=== PATIENT | female | born 1980 | race Caucasian/White ===

== ENCOUNTER 2016-03-31 07:05 | Day surgery (SDC) ==
[2016-03-01 17:55] VITALS: BMI 32.9
[2016-03-31] MEDS ORDERED: LIDOCAINE 1% 20 ML MDV ID ONE (07:20)
[2016-03-31 07:38] VITALS: TEMP 98
[2016-03-31] MEDS ORDERED: VERSED ONE (08:45)
[2016-03-31] MEDS ORDERED: DIPRIVAN 20 ML VIAL IVP ONE (08:45)
[2016-03-31] MEDS ORDERED: SUBLIMAZE ONE (08:45)
[2016-03-31 10:37] VITALS: BP 108/74
--- NOTE | 2016-03-31 14:28 | OP ---
INDICATIONS FOR PROCEDURE: 35-year-old female presents for endoscopy nd colonoscopy. She was having some right upper quadrant discomfort but that has improved. She still has heartburn and regurgitation, worse today after taking a prep. She was also having bright red blood per rectum. She has a history of colon polyps five years ago in [place], [place], unknown pathology results. She is scheduled for colonoscopy. MEDICATIONS: SEE ANESTHESIA NOTES. PROCEDURE: 1. ENDOSCOPY, ESOPHAGEAL BIOPSY, DAVID BIOPSY. 2. COLONOSCOPY. REPORT: The risks, benefits, alternatives and limitations were discussed in detail with the patient. Informed consent was obtained. After adequate sedation was achieved, the video endoscope was introduced in the posterior pharynx and esophagus under direct vision and easily advanced down to the second portion of the duodenum. I then slowly withdrew. The duodenal mucosa appeared unremarkable as did the duodenal bulb. The antrum and body relatively unremarkable. The scope was retroflexed to look at the cardia and fundus which was unremarkable. The scope was anteflexed and two biopsies from the antral wall and from the body obtained for H. Pylori testing. The scope was withdrawn back through the esophagus. There were two small erosions in the distal esophagus I biopsied this for histological review. The GE junction was at the top of the gastric folds at the diaphragmatic hiatus. The patient tolerated the procedure well with stable vital signs and pulse oximetry throughout. The patient's bed was turned. A digital rectal exam revealed good tone, no mass. The colonoscope was introduced into the rectum, advanced under direct visual guidance to the cecum. The cecum was identified by the appendiceal orifice and IC valve. I intubated the terminal ileum, which was unremarkable. I then slowly withdrew the scope in a circumferential manner examining the mucosa quite carefully. I looked on the proximal and distal side of folds and flexures as best as possible. I retroflexed the scope in the right colon and left colon to increase visualization. The colonic mucosa was unremarkable its entire length other than one diverticulum noted in the sigmoid area. No other abnormalities noted including on retroflex view of the anal canal. The prep was excellent, withdrawal time 6 minutes and 0 seconds. The patient tolerated the procedure well with stable vital signs and pulse oximetry throughout. IMPRESSION: 1. 1+ ESOPHAGITIS 2. SINGLE SIGMOID DIVERTICULUM RECOMMENDATIONS: 1. Strict reflux precautions. 2. Await pathology results. 3. Continue the same medications. 4. Repeat colonoscopy examination again at age 51, sooner if signs or symptoms would indicate otherwise. 5. Will see her back in the office as needed. CC: DR. HUMBERTO HOLLIS
== END 2016-03-31 10:45 | disposition home or self-care (01) ==
LOC: SURG 07:05
PROVIDERS: ATTEND Internal Medicine Gastroenterology
DX: Z86.010 Personal history of colon polyps (principal); R10.11 Right upper quadrant pain; K62.5 Hemorrhage of anus and rectum; D13.0 Benign neoplasm of esophagus; K57.30 Diverticulosis of large intestine without perforation or abscess without bleeding; K21.0 Gastro-esophageal reflux disease with esophagitis
CPT/HCPCS: 87339

== ENCOUNTER 2016-05-17 11:23 | Emergency (ER) ==
[2016-05-17 11:38] VITALS: BP 112/71; TEMP 98.4; BMI 32.8
[2016-05-17] MEDS ORDERED: DECADRON 4 MG/ML SDV IM STA (12:02)
--- NOTE | 2016-05-17 12:05 | ED.PDOC ---
General ED Provider: Dr. MIKAYLA SINGH Chief Complaint: Cough Stated Complaint: cough Time Seen by Physician: 11:33 Mode of Arrival: Walk-In Information Source: Patient Exam Limitations: No limitations Primary Care Provider: ANDREA JEAN Nursing and Triage Documentation Reviewed and Agree: Yes Respiratory Complaint Exam - Respiratory Complaint/Exam Onset/Duration: 1 day Symptoms Are: Still present Timing: Intermittent Initial Severity: Moderate Current Severity: Mild Location: Throat, Chest Character: Reports: Non-productive cough Aggravating: Reports: None Alleviating: Reports: None Associated Signs and Symptoms: Reports: URI, Nasal congestion, Sore throat. Denies: Rapid breathing, Dyspnea, Fever, Chills, Chest pain, Pleuritic chest pain, Wheezing, Hemoptysis, Dizziness, Calf pain, Calf swelling, Edema, Hoarseness, Sinus discomfort, Vomiting, Weight loss, Decreased oral intake, Increased thirst, Increased appetite, Increased urination Related History: Reports: Similar episode History of Healthcare-Acquired Pneumonia: No Related Surgical History: Reports: None Pulmonary Embolism Risk Factors: None Cardiac Risk Factors: Reports: None Pseudomonas Risk Factors: Reports: None Tuberculosis Risk Factors: Reports: None Status Asthmaticus Risk Factors: Reports: None Home Oxygen Use: No Recent Stress Test: No Recent Echo/LV Function: No Current Antibiotic Use: No Current Asthma Medication Use: No Respiratory Distress: None Inadequate Respiratory Effort: No Dysphagia Present: No Stridor Present: No JVD Present: No Retractions: Not Present Diminished Breath Sounds: No Sinus Tenderness: None Grunting Respirations: No Kussmaul Respirations: No Differential Diagnoses: Pneumonia, Bronchitis Review of Systems - Review Of Systems Constitutional: Reports: Malaise Eyes: Reports: No symptoms Ears, Nose, Mouth, Throat: Reports: Throat pain Respiratory: Reports: Cough, Wheezing Cardiac: Reports: No symptoms GI: Reports: No symptoms : Reports: No symptoms Musculoskeletal: Reports: No symptoms Skin: Reports: No symptoms Neurological: Reports: No symptoms Endocrine: Reports: No symptoms Hematologic/Lymphatic: Reports: No symptoms All Other Systems: Reviewed and Negative Past Medical History - Past Medical History Previously Healthy: Yes Endocrine: Reports: None Cardiovascular: Reports: None Respiratory: Reports: None Hematological: Reports: None Gastrointestinal: Reports: None Genitourinary: Reports: UTI (recurrent) Neuro/Psych: Reports: Anxiety, Depression Musculoskeletal: Reports: None Cancer: Reports: None Last Menstrual Period: none - Surgical History General Surgical History: Reports: Hysterectomy (partial ) - Family History Family History: Reports: Unknown - Social History Smoking Status: Former smoker, Vaping Hx Substance Use: No Alcohol Screening: None Physical Exam - Physical Exam Appearance: Well-appearing, No pain distress, Well-nourished Eyes: HAYDEE, EOMI, Conjunctiva clear ENT: Ears normal, Nose normal, Oropharynx normal Respiratory: Wheezes Cardiovascular: RRR, Pulses normal, No rub, No murmur GI/: Soft, Nontender, No masses, Bowel sounds normal, No Organomegaly Musculoskeletal: Normal strength, ROM intact, No edema, No calf tenderness Skin: Warm, Dry, Normal color Neurological: Sensation intact, Motor intact, Reflexes intact, Cranial nerves intact, Alert, Oriented Psychiatric: Affect appropriate, Mood appropriate Critical Care Note - Critical Care Note Total Time (mins): 0 Course - Course Orders, Labs, Meds: Orders Category Date Time Status Dexamethasone 4 mg/ml Inj [Decadron 4 mg/ml Sdv] MEDS 05/17/16 12:02 Stat 4 mg IM ONCE STA Medications Generic Name Dose Route Start Last Admin Trade Name Freq PRN Reason Stop Dose Admin Dexamethasone Sodium Phosphate 4 mg 05/17/16 12:02 Decadron 4 Mg/Ml Sdv IM 05/17/16 12:03 ONCE STA Vital Signs: Temp Pulse Resp BP Pulse Ox 05/17/16 11:33 98.4 F 91 H 18 112/71 97 Departure - Departure Time of Disposition: 12:04 Disposition: HOME SELF-CARE Discharge Problem: Cough, Bronchitis Instructions: Acute Bronchitis (ED), Wheezing (ED), How Your Lungs Work (ED), Bronchospasm (ED) Condition: Good Pt referred to PMD for follow-up: No Additional Instructions: Please call your Family Physician as soon as possible to schedule a follow-up appointment. Allergies/Adverse Reactions: Allergies ibuprofen [From Motrin] Adverse Reaction (Verified 05/17/16 11:38) Home Medications: Ambulatory Orders Omeprazole [Prilosec] 20 mg PO QDAC 03/01/16 Disposition Discussed With: Patient
== END 2016-05-17 12:39 | disposition home or self-care (01) ==
LOC: ED 11:23
DX: J20.9 Acute bronchitis, unspecified (principal)
CPT/HCPCS: 96372; 99282

== ENCOUNTER 2016-06-17 10:57 | Emergency (ER) ==
[2016-06-17 11:03] VITALS: BP 118/76; TEMP 99.5; BMI 32.5
--- NOTE | 2016-06-17 11:30 | ED.PDOC ---
General ED Provider: Dr. JONNATHAN TORRES JR Chief Complaint: Sore Throat Stated Complaint: had sore throat--feels left tonsil is swollen--then developed lower back pain--back pain has worsened--had headache since last night-[End] headache back pain are chronic patient does accept toradol injection but note allergy to motrin 99.5 88 20 98% 118/76 09/05 Time Seen by Physician: 11:28 Mode of Arrival: Walk-In Information Source: Patient Exam Limitations: No limitations [facility] Nursing and Triage Documentation Reviewed and Agree: No Review of Systems - Review Of Systems Constitutional: Reports: Malaise Eyes: Reports: No symptoms Ears, Nose, Mouth, Throat: Reports: Throat pain Respiratory: Reports: No symptoms Cardiac: Reports: No symptoms GI: Reports: No symptoms : Reports: No symptoms Musculoskeletal: Reports: Back pain Skin: Reports: No symptoms Neurological: Reports: No symptoms Endocrine: Reports: No symptoms Hematologic/Lymphatic: Reports: No symptoms All Other Systems: Other Past Medical History - Past Medical History Previously Healthy: Yes Endocrine: Reports: None Cardiovascular: Reports: None Respiratory: Reports: None Hematological: Reports: None Gastrointestinal: Reports: None Genitourinary: Reports: UTI (recurrent) Neuro/Psych: Reports: Anxiety, Depression Musculoskeletal: Reports: None Cancer: Reports: None Last Menstrual Period: hysterectomy - Surgical History General Surgical History: Reports: Hysterectomy (partial ) - Family History Family History: Reports: Unknown - Social History Smoking Status: Former smoker, Vaping Hx Substance Use: No Alcohol Screening: None Physical Exam - Physical Exam Appearance: Well-appearing, Obese Pain Distress: Moderate Eyes: HAYDEE, EOMI, Conjunctiva clear ENT: Ears normal, Nose normal, Oropharynx normal Neck: Supple Respiratory: Airway patent, Breath sounds clear, Breath sounds equal, Respirations nonlabored Cardiovascular: RRR, Pulses normal, No rub, No murmur GI/: Soft, Nontender, No masses, Bowel sounds normal, No Organomegaly Musculoskeletal: Normal strength, ROM intact, No edema, No calf tenderness ( tenderness paraspinal muscles at L3L4 level) Skin: Warm, Dry, Normal color Neurological: Sensation intact, Motor intact, Reflexes intact, Cranial nerves intact, Alert, Oriented Critical Care Note - Critical Care Note Total Time (mins): 0 Course - Course Orders, Labs, Meds: Orders Category Date Time Status RAPID FLU A/B Stat LAB 06/17/16 11:10 Received STREP SCREEN Stat LAB 06/17/16 11:10 Received Vital Signs: Temp Pulse Resp BP Pulse Ox 06/17/16 10:57 99.5 F 88 20 118/76 98 Departure - Departure Time of Disposition: 12:03 Disposition: HOME SELF-CARE Discharge Problem: Sore throat symptom, RTI (respiratory tract infection), Chronic back pain greater than 3 months duration Instructions: Upper Respiratory Infection (ED), Pharyngitis (ED), Chronic Back Pain (ED), Lower Back Exercises (ED) Condition: Good Pt referred to PMD for follow-up: Yes Additional Instructions: Naprosyn and Tylenol for back pain, and throat pain may use flexeril for spasms rest for two days - viral syndrome should resolve quickly return if fever over 101.0 use ice packs for acute worsening repeat testing of strep will be done- begin antibiotic only if positive Prescriptions: Naproxen [Naprosyn] 500 mg PO Q12HR PRN #30 tablet PRN Reason: PAIN Cyclobenzaprine HCl [Flexeril] 5 mg PO TID PRN #15 tablet PRN Reason: Spasms Allergies/Adverse Reactions: Allergies ibuprofen [From Motrin] Adverse Reaction (Verified 06/17/16 11:05) Home Medications: Ambulatory Orders Omeprazole [Prilosec] 20 mg PO QDAC 03/01/16 Cyclobenzaprine HCl [Flexeril] 5 mg PO TID PRN #15 tablet 06/17/16 L.acidoph,Paracasei, B.lactis [Probiotic] 1 each PO DAILY 06/17/16 Naproxen [Naprosyn] 500 mg PO Q12HR PRN #30 tablet 06/17/16
[2016-06-17] MEDS ORDERED: TORADOL IM STA (11:32)
[2016-06-17 11:38] LABS: FLU INTERNAL QC INTERNAL QC VALID; RAPID FLU A NEGATIVE (NEGATIVE); RAPID FLU B NEGATIVE (NEGATIVE)
== END 2016-06-17 12:55 | disposition home or self-care (01) ==
LOC: ED 10:57
DX: J02.9 Acute pharyngitis, unspecified (principal); J06.9 Acute upper respiratory infection, unspecified; M54.5 Low back pain; G89.29 Other chronic pain
CPT/HCPCS: 87651; 87804; 87880; 96372; 99283

== ENCOUNTER 2016-07-29 10:28 | Outpatient (CLI) ==
--- NOTE | 2016-07-29 10:55 | DI ---
EXAM: Lumbar spine radiographs. HISTORY: Low back pain. COMPARISON: 10/16/2010. TECHNIQUE: 5 views of the lumbar spine. FINDINGS: The normal curvature and alignment are maintained. Vertebral body heights are normal. T here is mild loss of disc height at L2-3 and L3-4 with associated endplate osteophyte formation. No fracture or subluxation identified. Sacral arcuate lines are intact. Soft tissues are unremarkabl e. IMPRESSION: Mild degenerative disc disease at L2-3 and L3-4.
[2016-07-29 11:03] LABS: BASOPHILS % (AUTO) 0.5 % (0.0-3.0); EOSINOPHILS # (AUTO) 0.4 K/ul (0.0-0.7); EOSINOPHILS % (AUTO) 5.7 % (0.0-7.0); HEMATOCRIT 39.5 % (37.0-47.0); HEMOGLOBIN 13.1 g/dl (12.0-16.0); IMMATURE GRANULOCYTE % (AUTO) 0.2 % (0.0-5.0); LYMPHOCYTES # (AUTO) 2.2 K/uL (0.60-3.4); LYMPHOCYTES % (AUTO) 32.3 (10.0-50.0); MEAN CORPUSCULAR HEMOGLOBIN 30.8 pg (27.0-31.0); MEAN CORPUSCULAR HGB CONC 33.2 (31.8-35.4); MEAN CORPUSCULAR VOLUME 92.7 fl (81.0-99.0); MONOCYTES # (AUTO) 0.3 K/uL (0.4-2.0); MONOCYTES % (AUTO) 4.7 (0-10); NEUTROPHILS # (AUTO) 3.8 K/ul (2.0-6.9); NEUTROPHILS % (AUTO) 56.6; PLATELET COUNT 257 10^3/uL (140-440); RED BLOOD COUNT 4.26 10^6/ul (4.20-5.40); WHITE BLOOD COUNT 6.66 K/ul (4.6-10.2)
[2016-07-29 11:42] LABS: ALBUMIN/GLOBULIN RATIO 1.25; ANION GAP 11.2; BILIRUBIN,TOTAL 0.49 mg/dL (0.00-1.20); BUN/CREATININE RATIO 10.84; CALCIUM 9.6 mg/dL (8.2-10.2); CREATININE 0.83 mg/dL (0.60-1.30); POTASSIUM 4.2 mmol/L (3.5-5.10); TOTAL PROTEIN 7.2 g/dL (6.4-8.2)
== END 2016-07-29 10:29 | disposition home or self-care (01) ==
LOC: CAR 10:28
PROVIDERS: ATTEND Nurse Practitioner Family
DX: M54.5 Low back pain (principal); E66.9 Obesity, unspecified
CPT/HCPCS: 36415; 80053; 84439; 84443; 85025; 93005; 93010

== ENCOUNTER 2017-06-22 15:13 | Emergency (ER) ==
[2017-06-22 15:19] VITALS: BP 100/73; TEMP 98; BMI 33.1
--- NOTE | 2017-06-22 17:22 | ED.PDOC ---
General ED Provider: Dr. JORGE CEDILLO Chief Complaint: Sore Throat Stated Complaint: Onset few days ago. Has been exposed to flu few days ago. Denies nausea or vomiting. Time Seen by Physician: 15:55 Mode of Arrival: Walk-In Information Source: Patient Exam Limitations: No limitations [facility] Nursing and Triage Documentation Reviewed and Agree: Yes Reviewed sepsis parameters & appropriate labs ordered?: Yes System Inflammatory Response Syndrome: Not Applicable Sepsis Protocol: For patient's 13 years and over: Temp is 96.8 and below OR 101 and greater Pulse >90 BPM Resp >20/minute Acutely Altered Mental Status Are patient's symptoms suggestive of a new infection, such as: -Pneumonia -Skin, Soft Tissue -Endocarditis -UTI -Bone, Joint Infection -Implantable Device -Acute Abdominal Infection -Wound Infection -Meningitis -Blood Stream Catheter Infection -Unknown System Inflammatory Response Syndrome: Not Applicable EENT Complaint Exam - Throat Complaint/Exam Symptoms Are: Still present Timimg: Constant Initial Severity: Moderate Current Severity: Mild Aggravating: Reports: Eating Alleviating: Reports: Antipyretics, Upright position Associated Signs and Symptoms: Denies: Fever, Dysphagia, Drooling, Chills, Cough , Hoarseness, Difficulty breathing, Irritability, Decreased activity, Vomiting, Diarrhea Related History: Denies: Similar Episode Uvula Midline: Yes Diane-tonsillar Fluctuence: No Scarlatinaform Rash Present: No Lesions: Absent: Lip, Gums, Tongue, Buccal Mucosa Exanthem: Absent: Lip, Gums, Tongue, Buccal Mucosa Vesicles: Absent: Lip, Gums Stridor Present: No Sinus Tenderness Present: No Tonsillar Hypertrophy Present: No Tonsillar Exudate Present: No Diane-tonsillar Swelling Present: No Adenopathy Present: Yes Splenomegaly Present: No Differential Diagnoses: Influenza, Pharyngitis Review of Systems - Review Of Systems Constitutional: Reports: No symptoms Eyes: Reports: No symptoms Ears, Nose, Mouth, Throat: Reports: No symptoms, Throat pain Respiratory: Reports: No symptoms Cardiac: Reports: No symptoms GI: Reports: No symptoms : Reports: No symptoms Musculoskeletal: Reports: No symptoms Skin: Reports: No symptoms Neurological: Reports: No symptoms Endocrine: Reports: No symptoms Hematologic/Lymphatic: Reports: No symptoms All Other Systems: Reviewed and Negative Past Medical History - Past Medical History Previously Healthy: Yes Endocrine: Reports: None Cardiovascular: Reports: None Respiratory: Reports: None Hematological: Reports: None Gastrointestinal: Reports: None Genitourinary: Reports: UTI (recurrent) Neuro/Psych: Reports: Anxiety, Depression Musculoskeletal: Reports: None Cancer: Reports: None Last Menstrual Period: N/A - Surgical History General Surgical History: Reports: Hysterectomy (partial ) - Family History Family History: Reports: Unknown - Social History Smoking Status: Former smoker, Vaping Hx Substance Use: No Alcohol Screening: None Physical Exam - Physical Exam Appearance: Well-appearing, No pain distress, Well-nourished Eyes: HAYDEE, EOMI, Conjunctiva clear ENT: Ears normal, Nose normal, Oropharynx normal, Erythema (Pharynx) Neck: Supple (pos adenopathy anterior) Respiratory: Airway patent, Breath sounds clear, Breath sounds equal, Respirations nonlabored Cardiovascular: RRR, Pulses normal, No rub, No murmur GI/: Soft, Nontender, No masses, Bowel sounds normal, No Organomegaly Musculoskeletal: Normal strength, ROM intact, No edema, No calf tenderness Skin: Warm, Dry, Normal color Neurological: Sensation intact, Motor intact, Reflexes intact, Cranial nerves intact, Alert, Oriented Psychiatric: Affect appropriate, Mood appropriate Re-Evaluation - Re-Evaluation Time of Re-Evaluation: 17:00 Status: Unchanged Vital Signs Stable: Yes Appearance: NAD Lungs: Clear Skin: Warm and Dry Neuro: Alert and Oriented X3 CV: RRR Critical Care Note - Critical Care Note Total Time (mins): 0 Course - Course Orders, Labs, Meds: Lab Review 06/22/17 15:50 Influ A Molecular Assay Negative by naat Influ B Molecular Assay Negative by naat Orders Category Date Time Status FLU A & B MOLECULAR [FLU A/B MOLECULAR] Stat LAB 06/22/17 15:50 Completed RAPID STREP SCREEN [MOLECULAR GROUP A STREP] Stat LAB 06/22/17 15:48 Completed Vital Signs: Temp Pulse Resp BP Pulse Ox 06/22/17 15:17 98.0 F 80 20 100/73 97 Departure - Departure Time of Disposition: 17:30 Disposition: HOME SELF-CARE Discharge Problem: Pharyngitis Qualifiers: Pharyngitis/tonsillitis etiology: other specified organisms Qualified Code(s): J02.8 - Acute pharyngitis due to other specified organisms Instructions: Pharyngitis (ED) Condition: Good Pt referred to PMD for follow-up: Yes (1 week) IPMP verified?: No Prescriptions: Azithromycin [Zithromax] 250 mg PO DAILY #6 tablet Allergies/Adverse Reactions: Allergies ibuprofen [From Motrin] Adverse Reaction (Verified 06/22/17 15:19) Home Medications: Ambulatory Orders Azithromycin [Zithromax] 250 mg PO DAILY #6 tablet 06/22/17 Dextroamphetamine/Amphetamine [Adderall 15 mg Tablet] 15 mg PO BID 06/22/17 Disposition Discussed With: Patient
== END 2017-06-22 17:51 | disposition home or self-care (01) ==
LOC: ED 15:13
DX: J02.9 Acute pharyngitis, unspecified (principal)
CPT/HCPCS: 87502; 87651; 99283

== ENCOUNTER 2017-11-22 16:55 | Emergency (ER) | payer MEDICAID, OTHER ==
[2017-11-22 17:02] VITALS: BP 116/76; TEMP 98.8; BMI 30.9
--- NOTE | 2017-11-22 17:07 | ED.PDOC ---
General ED Provider: Dr. MIKAYLA SINGH Chief Complaint: Sore Throat Stated Complaint: sore throat Time Seen by Physician: 17:00 Mode of Arrival: Walk-In Information Source: Patient Exam Limitations: No limitations Primary [facility] Nursing and Triage Documentation Reviewed and Agree: Yes Does patient meet sepsis criteria?: No If yes, has appropriate treatment been initiated?: No System Inflammatory Response Syndrome: Not Applicable Sepsis Protocol: For patient's 13 years and over: Temp is 96.8 and below OR 101 and greater Pulse >90 BPM Resp >20/minute Acutely Altered Mental Status Are patient's symptoms suggestive of a new infection, such as: -Pneumonia -Skin, Soft Tissue -Endocarditis -UTI -Bone, Joint Infection -Implantable Device -Acute Abdominal Infection -Wound Infection -Meningitis -Blood Stream Catheter Infection -Unknown EENT Complaint Exam - Throat Complaint/Exam Symptoms Are: Still present Initial Severity: Moderate Current Severity: Moderate Aggravating: Reports: Eating Alleviating: Reports: None Associated Signs and Symptoms: Reports: Cough, Nasal congestion Uvula Midline: Yes Diane-tonsillar Fluctuence: No Scarlatinaform Rash Present: No Lesions: Absent: Lip, Gums, Tongue, Buccal Mucosa, Pharynx Exanthem: Absent: Lip, Gums, Tongue, Buccal Mucosa, Pharynx Vesicles: Absent: Lip, Gums, Tongue, Buccal Mucosa, Pharynx Stridor Present: No Sinus Tenderness Present: No Tonsillar Hypertrophy Present: No Tonsillar Exudate Present: Yes Diane-tonsillar Swelling Present: No Differential Diagnoses: Pharyngitis Review of Systems - Review Of Systems Constitutional: Reports: No symptoms Eyes: Reports: No symptoms Ears, Nose, Mouth, Throat: Reports: Throat pain Respiratory: Reports: Cough Cardiac: Reports: No symptoms GI: Reports: No symptoms : Reports: No symptoms Musculoskeletal: Reports: No symptoms Skin: Reports: No symptoms Neurological: Reports: No symptoms Endocrine: Reports: No symptoms Hematologic/Lymphatic: Reports: No symptoms All Other Systems: Reviewed and Negative Past Medical History - Past Medical History Previously Healthy: Yes Endocrine: Reports: None Cardiovascular: Reports: None Respiratory: Reports: None Hematological: Reports: None Gastrointestinal: Reports: None Genitourinary: Reports: UTI (recurrent) Neuro/Psych: Reports: Anxiety, Depression Musculoskeletal: Reports: None Cancer: Reports: None Last Menstrual Period: hysterectomy - Surgical History General Surgical History: Reports: Hysterectomy (partial ) - Family History Family History: Reports: Unknown - Social History Smoking Status: Former smoker, Vaping Hx Substance Use: No Alcohol Screening: None Physical Exam - Physical Exam Appearance: Well-appearing, No pain distress, Well-nourished Eyes: HAYDEE, EOMI, Conjunctiva clear ENT: Erythema, Exudate Respiratory: Airway patent, Breath sounds clear, Breath sounds equal, Respirations nonlabored Cardiovascular: RRR, Pulses normal, No rub, No murmur GI/: Soft, Nontender, No masses, Bowel sounds normal, No Organomegaly Musculoskeletal: Normal strength, ROM intact, No edema, No calf tenderness Skin: Warm, Dry, Normal color Neurological: Sensation intact, Motor intact, Reflexes intact, Cranial nerves intact, Alert, Oriented Psychiatric: Affect appropriate, Mood appropriate Critical Care Note - Critical Care Note Total Time (mins): 0 Course - Course Vital Signs: Temp Pulse Resp BP Pulse Ox 11/22/17 16:56 98.8 F 76 16 116/76 97 Departure - Departure Time of Disposition: 17:06 Disposition: HOME SELF-CARE Discharge Problem: Sore throat symptom Pharyngitis Qualifiers: Pharyngitis/tonsillitis etiology: unspecified etiology Qualified Code(s): J02.9 - Acute pharyngitis, unspecified Instructions: Pharyngitis (ED), Strep Throat (ED) Condition: Good Pt referred to PMD for follow-up: Yes IPMP verified?: No Additional Instructions: Please call your Family Physician as soon as possible to schedule a follow-up appointment. Allergies/Adverse Reactions: Allergies ibuprofen [From Motrin] Adverse Reaction (Verified 11/22/17 17:03) Home Medications: Ambulatory Orders Dextroamphetamine/Amphetamine [Adderall 15 mg Tablet] 15 mg PO DAILY 06/22/17
== END 2017-11-22 17:14 | disposition home or self-care (01) ==
LOC: ED 16:55
DX: J02.9 Acute pharyngitis, unspecified (principal)
CPT/HCPCS: 99282

== ENCOUNTER 2018-02-04 09:25 | Emergency (ER) ==
[2018-02-04 09:35] VITALS: BP 99/77; TEMP 98.5; BMI 30.7
--- NOTE | 2018-02-04 10:20 | ED.PDOC ---
General ED Provider: Dr. JEFF PRIETO Chief Complaint: Respiratory Complaint Stated Complaint: Congestion, sniffles, fever, cough. Time Seen by Physician: 10:19 Mode of Arrival: Walk-In Information Source: Patient Exam Limitations: No limitations Primary Care Provider: KAYKAY ESPINOZA Nursing and Triage Documentation Reviewed and Agree: Yes Does patient meet sepsis criteria?: No System Inflammatory Response Syndrome: Not Applicable Sepsis Protocol: For patient's 13 years and over: Temp is 96.8 and below OR 101 and greater Pulse >90 BPM Resp >20/minute Acutely Altered Mental Status Are patient's symptoms suggestive of a new infection, such as: -Pneumonia -Skin, Soft Tissue -Endocarditis -UTI -Bone, Joint Infection -Implantable Device -Acute Abdominal Infection -Wound Infection -Meningitis -Blood Stream Catheter Infection -Unknown Review of Systems - Review Of Systems Constitutional: Reports: Fever Respiratory: Reports: Cough Cardiac: Reports: No symptoms Musculoskeletal: Reports: Other (Had "charley horse" left posterior knee this AM ) All Other Systems: Reviewed and Negative Past Medical History - Past Medical History Previously Healthy: Yes Endocrine: Reports: None Cardiovascular: Reports: None Respiratory: Reports: None Hematological: Reports: None Gastrointestinal: Reports: None Genitourinary: Reports: UTI (recurrent) Neuro/Psych: Reports: Anxiety, Depression Musculoskeletal: Reports: None Cancer: Reports: None Last Menstrual Period: hysterectomy - Surgical History General Surgical History: Reports: Hysterectomy (partial ) - Family History Family History: Reports: Unknown - Social History Smoking Status: Former smoker, Vaping Hx Substance Use: No Alcohol Screening: None Physical Exam - Physical Exam Appearance: Well-appearing Eyes: HAYDEE, EOMI ENT: Nose normal, Oropharynx normal Neck: Supple Respiratory: Airway patent, Breath sounds clear, Breath sounds equal, Respirations nonlabored Cardiovascular: RRR, Pulses normal Musculoskeletal: Normal strength, ROM intact, No calf tenderness (neg Hohmans; post knee no bakers cyst, no palpable muscular spasm) Neurological: Sensation intact, Motor intact, Alert, Oriented Psychiatric: Affect appropriate Interpretation - Radiology Interpretation Radiology Interpretation By: Radiologist Radiology Results: No acute changes Exam Interpreted: Portable CXR Critical Care Note - Critical Care Note Total Time (mins): 10 Course - Course Vital Signs: Temp Pulse Resp BP Pulse Ox 02/04/18 09:27 98.5 F 92 H 20 99/77 97 Departure - Departure Time of Disposition: 11:48 Disposition: HOME SELF-CARE Discharge Problem: URI (upper respiratory infection) Qualifiers: URI type: unspecified viral URI Qualified Code(s): J06.9 - Acute upper respiratory infection, unspecified Instructions: Viral Syndrome (ED) Condition: Good Pt referred to PMD for follow-up: Yes (Follow up with primary care) IPMP verified?: No (NA) Additional Instructions: Take medicaiton (prednisone)as prescribed; follow up with primary care provider as needed. Prescriptions: Prednisone 20 mg PO DAILYWM #18 tablet Allergies/Adverse Reactions: Allergies ibuprofen [From Motrin] Adverse Reaction (Verified 02/04/18 09:35) Home Medications: Ambulatory Orders Dextroamphetamine/Amphetamine [Adderall 15 mg Tablet] 15 mg PO DAILY 06/22/17 Prednisone 20 mg PO DAILYWM #18 tablet 02/04/18 Trazodone HCl 50 mg PO BEDTIME 02/04/18
--- NOTE | 2018-02-04 10:53 | DI ---
EXAM: CHEST FRONTAL VIEW HISTORY: Cough. COMPARISON: 03/01/2016 FINDINGS: Heart size and mediastinum remain within normal limits. Lungs are free of infiltrate. No consolidation or pleural fluid. There is no pneumothorax or acute bony finding. IMPRESSION: Findings within normal limits.
== END 2018-02-04 12:01 | disposition home or self-care (01) ==
LOC: ED 09:25
DX: J06.9 Acute upper respiratory infection, unspecified (principal); B34.9 Viral infection, unspecified
CPT/HCPCS: 87502; 87651; 99283

== ENCOUNTER 2018-07-29 14:04 | Emergency (ER) ==
[2018-07-29 14:12] VITALS: BP 121/82; TEMP 99.2; BMI 27.8
[2018-07-29] MEDS ORDERED: TETRACAINE 0.5% OPTH SOL OP STA (14:32)
[2018-07-29] MEDS ORDERED: EYE-STREAM OP STA (14:32)
[2018-07-29] MEDS ORDERED: OCUFEN 0.03% OPTH SOL OP STA (14:33)
[2018-07-29] MEDS ORDERED: FUL-GLO OP STA (14:37)
[2018-07-29] MEDS ORDERED: TETRACAINE 0.5% UNIT-DOSE OP STA (14:38)
[2018-07-29] MEDS ORDERED: TENIVAC IM ONE (14:59)
--- NOTE | 2018-07-29 15:00 | ED.PDOC ---
General ED Provider: Dr. MIKAYLA SINGH Chief Complaint: Eye Problem Stated Complaint: right eye injury witha tree branch 1 day ago Time Seen by Physician: 14:14 (yonis present at all times ) Mode of Arrival: Walk-In Information Source: Patient Exam Limitations: No limitations Primary Care Provider: KAYKAY ESPINOZA Nursing and Triage Documentation Reviewed and Agree: Yes Does patient meet sepsis criteria?: No System Inflammatory Response Syndrome: Not Applicable Sepsis Protocol: For patient's 13 years and over: Temp is 96.8 and below OR 101 and greater Pulse >90 BPM Resp >20/minute Acutely Altered Mental Status Are patient's symptoms suggestive of a new infection, such as: -Pneumonia -Skin, Soft Tissue -Endocarditis -UTI -Bone, Joint Infection -Implantable Device -Acute Abdominal Infection -Wound Infection -Meningitis -Blood Stream Catheter Infection -Unknown EENT Complaint Exam - Eye Complaint/Exam Onset/Duration: 1 day Symptoms Are: Still present Timing: Constant Initial Severity: Mild Current Severity: Mild Location: Right Character: Reports: Foreign body sensation Aggravating: Reports: Light, Blinking Alleviating: Reports: Darkness, Eye drops (tetracne ) Associated Signs and Symptoms: Reports: Photophobia, Clear drainage. Denies: Purulent drainage, Vision impairment, Fever, Swelling Eye Surgical History: Reports: None Penetrating Injury Risk Factors: None Globe Rupture Risk Factors: None Acute Glaucoma Risk Factors: None Optic Artery Occlusion Risk Factors: None Visual Acuity Right Eye: 20/30 Visual Acuity Left Eye: 20/20 Visual Field: Normal Extraocular Movement: Normal Orbit Findings: Normal Globe Findings: Intact Lid Findings: Normal, Eversion (negatibe f/b) Conjunctival Findings: Red (right) Fluorescein Uptake: Yes (3oclock 2mm pupil was reound reactive ) Differential Diagnoses: Corneal Abrasion Review of Systems - Review Of Systems Constitutional: Reports: No symptoms Eyes: Reports: Foreign body sensation (right), Pain (same eye only), Photophobia Ears, Nose, Mouth, Throat: Reports: No symptoms Respiratory: Reports: No symptoms Cardiac: Reports: No symptoms GI: Reports: No symptoms : Reports: No symptoms Musculoskeletal: Reports: No symptoms Skin: Reports: No symptoms Neurological: Reports: No symptoms Endocrine: Reports: No symptoms Hematologic/Lymphatic: Reports: No symptoms All Other Systems: Reviewed and Negative Past Medical History - Past Medical History Previously Healthy: Yes Endocrine: Reports: None Cardiovascular: Reports: None Respiratory: Reports: None Hematological: Reports: None Gastrointestinal: Reports: None Genitourinary: Reports: UTI (recurrent) Neuro/Psych: Reports: Anxiety, Depression Musculoskeletal: Reports: None Cancer: Reports: None Last Menstrual Period: HYSTERECTOMY - Surgical History General Surgical History: Reports: Hysterectomy (partial ) - Family History Family History: Reports: Unknown - Social History Smoking Status: Former smoker, Vaping Hx Substance Use: No Alcohol Screening: None - Immunizations Tetanus Shot up to Date: No Physical Exam - Physical Exam Appearance: Well-appearing, No pain distress, Well-nourished Eyes: HAYDEE, EOMI, Conjunctiva inflammed (right . dye uptake righ eye) ENT: Ears normal, Nose normal, Oropharynx normal Respiratory: Airway patent, Breath sounds clear, Breath sounds equal, Respirations nonlabored Cardiovascular: RRR, Pulses normal, No rub, No murmur GI/: Soft, Nontender, No masses, Bowel sounds normal, No Organomegaly Musculoskeletal: Normal strength, ROM intact, No edema, No calf tenderness Skin: Warm, Dry, Normal color Neurological: Sensation intact, Motor intact, Reflexes intact, Cranial nerves intact, Alert, Oriented Psychiatric: Affect appropriate, Mood appropriate Procedures - Eye Procedure Location of Foreign Body: no f/b Tetracaine Drops Administered: Yes Progress: no f/b but 2 mm corneal abrasion noted Critical Care Note - Critical Care Note Total Time (mins): 0 Course - Course Orders, Labs, Meds: Orders Category Date Time Status Balanced Salt Solution [Eye-Stream] MEDS 07/29/18 14:32 Stat 1 bottle OP ONCE STA Fluorescein Sodium [Ful-Faby] MEDS 07/29/18 14:37 Discontinued 1 strip OP ONCE STA Flurbiprofen Sodium Opth [Ocufen 0.03% Opth Ssuan] MEDS 07/29/18 14:33 Stat 1 drop OP ONCE STA Tetracaine HCl [Tetracaine 0.5% Opth Susan] MEDS 07/29/18 14:32 Stat 2 drop OP ONCE STA Tetracaine HCl/Pf [Tetracaine 0.5% Unit-Dose] MEDS 07/29/18 14:38 Discontinued 2 drop OP ONCE STA Medications Discontinued Medications Generic Name Dose Route Start Last Admin Trade Name Freq PRN Reason Stop Dose Admin Eye Irrigation Solution 1 bottle 07/29/18 14:32 07/29/18 14:53 Eye-Stream OP 07/29/18 14:33 1 bottle ONCE STA Administration Fluorescein Sodium 1 strip 07/29/18 14:37 07/29/18 14:53 Ful-Faby OP 07/29/18 14:38 1 strip ONCE STA Administration Flurbiprofen Sodium 1 drop 07/29/18 14:33 07/29/18 14:51 Ocufen 0.03% Opth Susan OP 07/29/18 14:34 Not Given ONCE STA Tetracaine HCl 2 drop 07/29/18 14:32 07/29/18 14:52 Tetracaine 0.5% Opth Susan OP 07/29/18 14:33 Not Given ONCE STA Tetracaine HCl 2 drop 07/29/18 14:38 07/29/18 14:53 Tetracaine 0.5% Unit-Dose OP 07/29/18 14:39 2 drop ONCE STA Administration Vital Signs: Temp Pulse Resp BP Pulse Ox 07/29/18 14:07 99.2 F 97 H 18 121/82 98 Departure - Departure Time of Disposition: 15:02 Disposition: HOME SELF-CARE Discharge Problem: Corneal abrasion Qualifiers: Encounter type: initial encounter Laterality: right Qualified Code(s): S05.01XA - Injury of conjunctiva and corneal abrasion without foreign body, right eye, initial encounter Instructions: Corneal Abrasion (ED) Condition: Good Pt referred to PMD for follow-up: Yes IPMP verified?: No Additional Instructions: Please call your Family Physician as soon as possible to schedule a follow-up appointment. Allergies/Adverse Reactions: Allergies ibuprofen [From Motrin] Adverse Reaction (Verified 07/29/18 14:09) Home Medications: Ambulatory Orders Dextroamphetamine/Amphetamine [Adderall 15 mg Tablet] 15 mg PO DAILY 06/22/17 Trazodone HCl 50 mg PO BEDTIME 02/04/18
== END 2018-07-29 15:38 | disposition home or self-care (01) ==
LOC: ED 14:04
DX: S05.01XA Injury of conjunctiva and corneal abrasion without foreign body, right eye, initial encounter (principal); W22.8XXA Striking against or struck by other objects, initial encounter
CPT/HCPCS: 90471; 90714; 99282; 99283

== ENCOUNTER 2018-10-31 15:39 | Emergency (ER) ==
[2018-10-31 15:42] VITALS: BP 125/84; TEMP 99.2; BMI 27.8
--- NOTE | 2018-10-31 16:42 | ED.PDOC ---
General ED Provider: Dr. JORGE CEDILLO Chief Complaint: Urinary Problem Stated Complaint: UTI symptoms. Thinks has a UTI for several weeks. Complains of dysuria, frequency, body aches and fever and diarrhea. Denies vaginal discharge or pelvi pain. Has been attempting drink cranberry juice at home. Time Seen by Physician: 15:50 Mode of Arrival: Walk-In Information Source: Patient Exam Limitations: No limitations Primary Care Provider: KAYKAY ESPINOZA Nursing and Triage Documentation Reviewed and Agree: Yes Does patient meet sepsis criteria?: No If yes, has appropriate treatment been initiated?: No System Inflammatory Response Syndrome: Not Applicable Sepsis Protocol: For patient's 13 years and over: Temp is 96.8 and below OR 101 and greater Pulse >90 BPM Resp >20/minute Acutely Altered Mental Status Are patient's symptoms suggestive of a new infection, such as: -Pneumonia -Skin, Soft Tissue -Endocarditis -UTI -Bone, Joint Infection -Implantable Device -Acute Abdominal Infection -Wound Infection -Meningitis -Blood Stream Catheter Infection -Unknown Complaint Exam - UTI Female Complaint/Exam Patient Complains of: Reports: Painful urination Symptoms Are: Still present Timing: Intermittent Initial Severity: Moderate Current Severity: Moderate Location of Pain: Reports: Suprapubic Associated Signs and Symptoms: Reports: Flank pain CVA Tenderness: No Suprapubic Tenderness: No Differential Diagnoses: Cystitis Review of Systems - Review Of Systems Constitutional: Reports: No symptoms Eyes: Reports: No symptoms Ears, Nose, Mouth, Throat: Reports: No symptoms Respiratory: Reports: No symptoms Cardiac: Reports: No symptoms GI: Reports: No symptoms : Reports: No symptoms Musculoskeletal: Reports: No symptoms Skin: Reports: No symptoms Neurological: Reports: No symptoms Endocrine: Reports: No symptoms Hematologic/Lymphatic: Reports: No symptoms All Other Systems: Reviewed and Negative Past Medical History - Past Medical History Previously Healthy: Yes Endocrine: Reports: None Cardiovascular: Reports: None Respiratory: Reports: None Hematological: Reports: None Gastrointestinal: Reports: None Genitourinary: Reports: UTI (recurrent) Neuro/Psych: Reports: Anxiety, Depression Musculoskeletal: Reports: None Cancer: Reports: None Last Menstrual Period: none - Surgical History General Surgical History: Reports: Hysterectomy (partial ) - Family History Family History: Reports: Unknown - Social History Smoking Status: Former smoker, Vaping Hx Substance Use: No Alcohol Screening: None Physical Exam - Physical Exam Appearance: Well-appearing, No pain distress, Well-nourished, Obese Ill-appearing: None Pain Distress: Mild Eyes: HAYDEE, EOMI, Conjunctiva clear ENT: Ears normal, Nose normal, Oropharynx normal Respiratory: Airway patent, Breath sounds clear, Breath sounds equal, Respirations nonlabored Cardiovascular: RRR, Pulses normal, No rub, No murmur GI/: Soft, Nontender, No masses, Bowel sounds normal, No Organomegaly Musculoskeletal: Normal strength, ROM intact, No edema, No calf tenderness Skin: Warm, Dry, Normal color Neurological: Sensation intact, Motor intact, Reflexes intact, Cranial nerves intact, Alert, Oriented Psychiatric: Affect appropriate, Mood appropriate Critical Care Note - Critical Care Note Total Time (mins): 0 Course - Course Hematology/Chemistry: 10/31/18 16:53 10/31/18 16:53 Orders, Labs, Meds: Lab Review 10/31/18 10/31/18 10/31/18 15:50 16:53 16:53 WBC 7.14 RBC 4.10 L Hgb 12.8 Hct 38.0 MCV 92.7 MCH 31.2 H MCHC 33.7 RDW Coeff of Kimo 12.5 Plt Count 307 Immature Gran % (Auto) 0.1 Neut % (Auto) 63.7 Lymph % (Auto) 29.6 [place] % (Auto) 3.8 Eos % (Auto) 2.2 Baso % (Auto) 0.6 Immature Gran # (Auto) 0.0 Neut # (Auto) 4.6 Lymph # (Auto) 2.1 [place] # (Auto) 0.3 L Eos # (Auto) 0.2 Baso # (Auto) 0.0 Sodium 138.6 Potassium 3.87 Chloride 101.9 Carbon Dioxide 26.4 Anion Gap 14.17 BUN 13.2 Creatinine 0.73 Estimated GFR (MDRD) 90.00 BUN/Creatinine Ratio 18.08 Glucose 77.5 Calcium 9.42 Total Bilirubin 0.46 AST 20.8 ALT 17.1 Alkaline Phosphatase 57.2 Total Protein 7.00 Albumin 4.17 Globulin 2.83 Albumin/Globulin Ratio 1.47 Urine Color Yellow Urine Clarity Clear Urine pH 5.5 Ur Specific [place] >=1.030 Urine Protein Negative Urine Glucose (UA) Negative Urine Ketones Negative Urine Blood Trace-lysed Urine Nitrite Negative Urine Bilirubin Negative Urine Urobilinogen 0.2 Ur Leukocyte Esterase Negative Urine Microscopic RBC 2-5 Ur Squamous Epith Cells 0-2 Orders Category Date Time Status CBC W/ AUTO DIFF Stat LAB 10/31/18 16:53 Completed CMP [COMPREHENSIVE METABOLIC PANEL] Stat LAB 10/31/18 16:53 Completed UA [URINALYSIS C & S IF INDICATED] Stat LAB 10/31/18 15:50 Completed Vital Signs: Temp Pulse Resp BP Pulse Ox 10/31/18 15:39 99.2 F 96 H 18 125/84 98 Departure - Departure Time of Disposition: 17:35 Disposition: HOME SELF-CARE Discharge Problem: Cystitis Instructions: Urinary Tract Infection in Women (ED) Condition: Stable Pt referred to PMD for follow-up: Yes IPMP verified?: No Additional Instructions: Remain well hydrated take meds as directed FOllow up p cp 7-10 days Prescriptions: Nitrofurantoin Monohyd/M-Cryst [Macrobid] 100 mg PO BID #14 capsule Allergies/Adverse Reactions: Allergies ibuprofen [From Motrin] Adverse Reaction (Verified 10/31/18 15:42) Home Medications: Ambulatory Orders Dextroamphetamine/Amphetamine [Adderall 15 mg Tablet] 10 mg PO TID 06/22/17 Trazodone HCl 50 mg PO BEDTIME PRN 02/04/18 Nitrofurantoin Monohyd/M-Cryst [Macrobid] 100 mg PO BID #14 capsule 10/31/18 Disposition Discussed With: Patient
== END 2018-10-31 18:03 | disposition home or self-care (01) ==
LOC: ED 15:39
DX: N30.90 Cystitis, unspecified without hematuria (principal); Z87.440 Personal history of urinary (tract) infections; Z72.0 Tobacco use
CPT/HCPCS: 36415; 80053; 81001; 85025; 99283